=== PATIENT | male | born 1995 ===

== ENCOUNTER → 2023-07-17 11:15 | Outpatient (BNV) | payer OTHER, SELFPAY | PROVIDERS: Visit Provider Psychiatry & Neurology Psychiatry | DX: F33.2 Major depressive disorder, recurrent severe without psychotic features (principal); F43.10 Post-traumatic stress disorder, unspecified; F98.8 Other specified behavioral and emotional disorders with onset usually occurring in childhood and adolescence; F81.9 Developmental disorder of scholastic skills, unspecified; F41.1 Generalized anxiety disorder; F12.988 Cannabis use, unspecified with other cannabis-induced disorder | CPT/HCPCS: 90792; 99213; 99214 ==

== ENCOUNTER 2023-08-08 09:30 | Outpatient (RCR) | payer OTHER, SELFPAY ==
--- NOTE | 2023-07-17 09:19 | PC.NURSE ---
I called and left a message for Trudy Rico social media specialist at [facility] unit requesting a copy of the discharge paperwork with discharge summary and discharge medications. Awaiting call back.
[2023-07-17 11:54] VITALS: BP 123/85; PULSE 54; TEMP 36.6
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
--- NOTE | 2023-07-19 11:22 | HO.PHP ---
[facility] staff member followed up with Ryan who was expressing suicidal thoughts without a plan or intent. Ryan made a comment about feeling as though people don't care about him, even though they tell him they do and thoughts of what is the point. [facility] staff member explored with Ryan what is stopping him from acting on those thoughts. Ryan disclosed that he doesn't see the point in acting on those negative thoughts. [facility] staff member also encouraged Ryan to further review within the group setting what brought him to the program so he is able to get support from the group members. Ryan noted he does not see the point of processing the same things he has already discussed. Ryan presented as feeling hopeless. [facility] staff member explored with Ryan if he would like to get further evaluated for safety but he declined and stated that he has no plan or intent to act on anything. [facility] staff member was receptive and reviewed with Ryan the crisis numbers. Ryan did report if his thoughts develop into a plan he would access the crisis line or come to the hospital to get evaluated. Ryan was not presenting with any further concerns at this point and was able to return to group.
--- NOTE | 2023-07-19 16:22 | HO.PHP ---
At roughly 10:30 remote mortgage underwriter met with pt to assess for safety after stating in group he was trying to find the will to keep going . Pt reported he struggles with negative thoughts of hopelessness such as why bother , not one cares . Pt denied a plan to act on his hopeless thoughts. Stated he did not feel he needed to be assessed by crisis but would sit with [facility] staff further to discuss his safety. Pt continued to meet with [facility] staff, Cyndie while this remote mortgage underwriter exited. At roughly 1200 this remote mortgage underwriter met with Ryan again to go over his treatment plan. Pt needed prompting and motivational interviewing to help him explore his goals for PHP and post. Pt stated group settings have not been helpful in the past but stated he would stay and try. Pt acknowledged he has a hard time expressing his feelings. Pt was able to identify goal to find employment and to resume therapy post PHP. Pt was provided information for local respites, [facility] and [facility] as alternatives to the emergency room should he feel he needs higher level of care since pt expressed disinterest in returning inpatient, unhelpful . Pt stated he was safe and would return to groups today and return to [facility] tomorrow. Pt also agreed to check in with [facility] staff at any point during programming if his negative thoughts increased.
--- NOTE | 2023-07-20 16:18 | HO.PHP ---
Client's case has been opened and reviewed in teams.
--- NOTE | 2023-07-20 21:53 | HO.PHPPROGNO ---
Subjective Subjective Date of Service: 07/20/23 Reason For Visit: depression Interim History: Just feeling worse...more hopeless . Patient seen due to complaints of worsening depression. He endorses feelings of hopelessness at times, but says he would never harm himself, mostly on account of a friend (possibly exGF). He shares details about their long standing relationship which has been emotionally complicated. He says they continue to communicate with one another, but aren't currently together mostly because he suspects she thinks she will be a burden to me (on account of her own mental health struggles). He shares feeling like there is something very wrong deep inside (of me) , but admits he generally does not share these thoughts with others, and in general has been somewhat guarded in groups. Appetite and energy are low. Sleep is not great has difficulty falling asleep and also experiences frequent disruptions to sleep. Denies any issues with nightmares or waking with panic attacks but does carry anxiety/stress in his body he says. Denies any HI, AH, VH. Medication Compliance: Yes Side effects from medications: No Attending Groups: Yes Review of Systems Acute medical concerns: No Mental Status Exam Mental Status Exam Narrative: Alert, oriented, in no acute distress. Fair grooming. Casually dressed. Calm, cooperative, engaged. No psychomotor agitation or neurovegetative retardation. No tics or tremors noted over telehealth (Gait not assessed). Eye contact maintained. Mood depressed, affect constricted. Speech normal. Thought process linear, coherent, does not present as preoccupied or disorganized. Thought content related to present stressors, trauma sx, chronic low self esteem, transient hopelessness, but denies any current SI. Denies any aggressive ideation or HI. Denies any thoughts, impulse, intention or plan to harm self or others. No paranoia or delusional content elicited. Denies any AH or VH, no evidence of psychosis. Cognition grossly intact, mildly distractible but overall able to attend to discussion. Insight and judgment - fair but adequate. Assessment & Plan Assessment & Plan (1) Major depressive disorder, recurrent severe without psychotic features: Status: Acute Code(s): F33.2 - Major depressive disorder, recurrent severe without psychotic features Assessment and Plan: r/o Bipolar spectrum or other mood disorder (2) PTSD (post-traumatic stress disorder): Status: Acute Code(s): F43.10 - Post-traumatic stress disorder, unspecified (3) Other specified behavioral and emotional disorders with onset usually occurring in childhood and adolescence: Status: Acute Code(s): F98.8 - Other specified behavioral and emotional disorders with onset usually occurring in childhood and adolescence Assessment and Plan: likely Pervasive Developmental Disorder History of Learning Disorder and other unspecified scholastic disabilities History of Attention-Deficit Hyperactivity Disorder (ADHD) since childhood r/o other disorders of impulse control r/o spectrum disorder (4) Learning disabilities: Status: Acute Code(s): F81.9 - Developmental disorder of scholastic skills, unspecified (5) Other anxiety states: Status: Acute Code(s): F41.1 - Generalized anxiety disorder Assessment and Plan: Acute Stress Reaction (most recent), generalized anxiety, social anxiety, somatic sx/panic (6) Cannabis use, unspecified with other cannabis-induced disorder: Status: Acute Code(s): F12.988 - Cannabis use, unspecified with other cannabis-induced disorder Plan continue fluoxetine 30 mg qam start bupropion SR 100 mg qam may start prazosin 1 mg qam (check vitals) continue prazosin 1 mg qhs increase Seroquel to 100 mg qhs Routine lab work ordered UDS, EKG as indicated MassPat reviewed Continue to monitor as per protocol Patient educated on: diagnosis and medication risk/benefits Informed Consent: understands Certification I certify that partial hospital treatment is medically necessary due to the symptoms and problems resulting from the patient's mental illness and the failure to treat the patient at the partial hospital level of care would likely result in the patient requiring inpatient psychiatric care which could not be prevented at a less intensive level of care. Total time managing care of this patient today __30__ minutes. Discharge Plan Discharge Attending provider: Alejandra Arambula Additional Instructions: New PCP appointment with Dr Cristy Rosen. [address] [place] [address]. [address] on August at 1:00. Office Number [phone] Medications: New prazosin 1 mg capsule 1 - 2 mg PO BEDTIME PRN (Reason: sleep) Qty: 20 0RF fluoxetine 10 mg capsule 10 mg PO QAM Qty: 30 0RF quetiapine 25 mg tablet 25 mg PO BID PRN (Reason: sleep, agitation) Qty: 30 0RF bupropion HCl 100 mg tablet sustained-release 12 hr 100 mg PO QAM Qty: 20 0RF quetiapine [Seroquel] 50 mg tablet 50 mg PO BID Qty: 20 0RF quetiapine 100 mg tablet 100 - 150 mg PO BEDTIME Qty: 20 0RF Continued prazosin 2 mg Capsule 2 mg PO BEDTIME fluoxetine 20 mg Capsule 20 mg PO DAILY Qty: 30 0RF Rx Instructions: =DOSE INCREASE= Held quetiapine 50 mg Tablet 50 mg PO BEDTIME Hold Instructions: Resume on 07/24/23. patient trialing whether 37.5 mg dose is better tolerated Stand Alone Forms: Patient Portal Discharge page Print Language: Kinyarwanda
--- NOTE | 2023-07-25 13:52 | PC.NURSE ---
Addendum entered by Elizabeth Anderson RN 07/25/23 14:03: New PCP appointment with Dr Cristy Rosen. [address] [place] [address]. [address] on August at 1:00. Office Number [phone] Original Note: New PCP appointment with Dr Lola Muniz. [address] [place] [address]. [address] on August at 1:00. Office Number [phone]
--- NOTE | 2023-07-25 23:09 | P.PNPSP_ITS ---
Subjective Subjective Date of Service: 07/25/23 Reason For Visit: depression Interim History: Patient see for follow up. Stil preesnts with depressed/sullen affect but brightens at moments. He reports some improvement in his depressive symptoms, which are still there, but less intense . He rates his depression severity at a 4 out of 10, down from an 8 or 9 on admission. His anxiety severity at a 5 out of 10. Fluoxetine was increased to 30 mg on admission and Wellbutrin SR 100 mg was started last week. He denies any adverse effects. He reports not sleeping until 5am last night, so he only got 2 hours of sleep before coming to the program today. Aside from lasat night, he has been falling asleep around midnight and waking up q2-3 hours, which he says has been typical for him. He suggests last night he had a sugary drink from a [employer] restaurant and suspects this may have been an energy drink which kept him up. He is tired today, there are no other signs of overactivation or ifeanyi. However he says he is generally low energy and yet has struggled with sleep. He reports his sleep has imrpoved from a 4/10 on 50 mg of Seroquel to a 6/10 on 100 mg at night. We plan to increase his Seroquel to 150 mg with a 50 mg PRN, especially since we will be titrating the dose of Wellbutrin SR to 150 mg (which he should split into 100/50 mg in AM and lunch. He reports feeling less hopeless, denies SI, HI, AH, VH. ROS negative. Medication Compliance: Yes Side effects from medications: No Attending Groups: Yes Review of Systems Acute medical concerns: No Mental Status Exam Mental Status Exam Narrative: Alert, oriented, in no acute distress. Calm, cooperative, engaged. Eye contact maintained. Mood depressed, affect constricted. Speech normal. Thought process linear, coherent, does not present as preoccupied or disorganized. Thought content related to stressors, denies any hopelessness or SI. Denies any aggressive ideation or HI. No paranoia or delusional content elicited. Denies any AH or VH, no evidence of psychosis. Cognition grossly intact. Insight and judgment - fair but adequate. Assessment & Plan Assessment & Plan (1) Major depressive disorder, recurrent severe without psychotic features: Status: Acute Code(s): F33.2 - Major depressive disorder, recurrent severe without psychotic features Assessment and Plan: r/o Bipolar spectrum or other mood disorder (2) PTSD (post-traumatic stress disorder): Status: Acute Code(s): F43.10 - Post-traumatic stress disorder, unspecified (3) Other specified behavioral and emotional disorders with onset usually occurring in childhood and adolescence: Status: Acute Code(s): F98.8 - Other specified behavioral and emotional disorders with onset usually occurring in childhood and adolescence Assessment and Plan: likely Pervasive Developmental Disorder History of Learning Disorder and other unspecified scholastic disabilities History of Attention-Deficit Hyperactivity Disorder (ADHD) since childhood r/o other disorders of impulse control r/o spectrum disorder (4) Learning disabilities: Status: Acute Code(s): F81.9 - Developmental disorder of scholastic skills, unspecified (5) Other anxiety states: Status: Acute Code(s): F41.1 - Generalized anxiety disorder Assessment and Plan: Acute Stress Reaction (most recent), generalized anxiety, social anxiety, somatic sx/panic (6) Cannabis use, unspecified with other cannabis-induced disorder: Status: Acute Code(s): F12.988 - Cannabis use, unspecified with other cannabis-induced disorder Plan continue fluoxetine 30 mg qam increase bupropion SR to 150 mg (split 100/50 in AM/lunch) continue prazosin 1 mg BID increase Seroquel to 150 mg qhs, may take an additional 50 mg PRN Routine lab work ordered UDS, EKG as indicated MassPat reviewed Continue to monitor as per protocol Patient educated on: diagnosis and medication risk/benefits Informed Consent: understands Reason for contiued partial hosp. stay Substantial Risk for: inability to function and med/psych decompensation Certification I certify that partial hospital treatment is medically necessary due to the symp toms and problems resulting from the patient's mental illness and the failure to treat the patient at the partial hospital level of care would likely result in the patient requiring inpatient psychiatric care which could not be prevented at a less intensive level of care. Total time managing care of this patient today __30__ minutes. Discharge Plan Discharge Attending provider: Alejandra Arambula Additional Instructions: New PCP appointment with Dr Cristy Rosen. [address] [place] [address]. [address] on August at 1:00. Office Number [phone] Medications: New prazosin 1 mg capsule 1 - 2 mg PO BEDTIME PRN (Reason: sleep) Qty: 20 0RF fluoxetine 10 mg capsule 10 mg PO QAM Qty: 30 0RF quetiapine 25 mg tablet 25 mg PO BID PRN (Reason: sleep, agitation) Qty: 30 0RF bupropion HCl 100 mg tablet sustained-release 12 hr 100 mg PO QAM Qty: 20 0RF quetiapine [Seroquel] 50 mg tablet 50 mg PO BID Qty: 20 0RF quetiapine 100 mg tablet 100 - 150 mg PO BEDTIME Qty: 20 0RF Continued prazosin 2 mg Capsule 2 mg PO BEDTIME fluoxetine 20 mg Capsule 20 mg PO DAILY Qty: 30 0RF Rx Instructions: =DOSE INCREASE= Held quetiapine 50 mg Tablet 50 mg PO BEDTIME Hold Instructions: Resume on 07/24/23. patient trialing whether 37.5 mg dose is better tolerated Stand Alone Forms: Patient Portal Discharge page Print Language: Chadian
--- NOTE | 2023-07-26 12:16 | HO.PHP ---
[employer] and pt called [facility] in [facility] to reschedule a missed appt with his Med provider. Pt's new aftercare med provider appt was obtained with [facility], it is with Rj Marx on August 10 at 10 am, 1 [facility]. Pt next OP therapy appt is scheduled for August 01 with Myla through [facility].
[2023-07-31 13:44] VITALS: BP 133/78; PULSE 72
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
--- NOTE | 2023-08-01 10:04 | HO.PHP ---
[facility] staff member faxed over the referral for CSP services through [facility]. [facility] staff member is awaiting a phone call back with scheduled appointment dates and times.
--- NOTE | 2023-08-04 13:58 | HO.PHP ---
PHP Admin, Amanda, informed the group that Ryan will not be in attendance to program today. Ryan disclosed no safety concerns and informed Amanda he would be here on Monday.
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
--- NOTE | 2023-08-08 10:42 | HO.PHP ---
PHP staff member received an voice message from Isabel, through [facility], in which she provided the appointment dates and times for Ryan's next scheduled appointment is on August 11, 2023 at 10 AM with Adele Larsno at the [address] [place] [address] location in [place], [place]. .
--- NOTE | 2023-08-08 13:12 | HO.PHP ---
PHP staff member rescheduled Ryan's appointment time for CSP with Isabel through [facility] since he has a prior appointment scheduled for that date and time. The new appointment for CSP is on August 16, 2023 at 10 AM with Edmond Ruiz.
--- NOTE | 2023-08-08 21:40 | P.PNPSP_ITS ---
Subjective Subjective Date of Service: 08/08/23 Reason For Visit: depression Interim History: Patient seen for follow-up, anticipating discharge at the end of program.? It's going okay Reports no acute issues or concerns. Medication compliant, medications well-tolerated. Denies any adverse effects.? Reports his anxiety has been okay...better. it's getting easier to manage and communicate . He reports that he has not needed to take the lorazepam given that his anxiety symptoms are improving. He also shares that his mother had concerns about the lorazepam and expressed wish that patient not continue this medication which he agreed to. Patient reports that he flushed the remaining tablets of clonazepam down the toilet. Patient was counseled on appropriate ways to discard old or unused supply of medication, for future reference. Mood is stable.? Denies any hopelessness or SI. Denies thoughts of harming self or others at this time. Denies any aggressive ideation or HI. Denies any paranoia or AH or VH. Sleep, appetite, energy stable. Medication Compliance: Yes Side effects from medications: No Attending Groups: Yes Review of Systems Acute medical concerns: No Mental Status Exam Mental Status Exam Narrative: Alert, oriented, in no acute distress. Mood stable, affect variable, anxious, brighter, mood congruent. Speech normal. Thought process linear, coherent, more goal-directed. Thought content related to stressors, future-oriented, denies any hopelessness or SI. Denies any aggressive ideation or HI. No paranoia or delusional content elicited. Denies any AH or VH, no evidence of psychosis. Cognition grossly intact. Insight and judgment - fair but adequate. Assessment & Plan Assessment & Plan (1) Major depressive disorder, recurrent severe without psychotic features: Status: Acute Code(s): F33.2 - Major depressive disorder, recurrent severe without psychotic features (2) PTSD (post-traumatic stress disorder): Status: Acute Code(s): F43.10 - Post-traumatic stress disorder, unspecified (3) Other specified behavioral and emotional disorders with onset usually occurring in childhood and adolescence: Status: Acute Code(s): F98.8 - Other specified behavioral and emotional disorders with onset usually occurring in childhood and adolescence (4) Learning disabilities: Status: Acute Code(s): F81.9 - Developmental disorder of scholastic skills, unspecified (5) Other anxiety states: Status: Acute Code(s): F41.1 - Generalized anxiety disorder (6) Cannabis use, unspecified with other cannabis-induced disorder: Status: Acute Code(s): F12.988 - Cannabis use, unspecified with other cannabis-induced disorder Plan Discharge from [facility] Continue regular medications Wellbutrin SR 100 mg qam Prozac 40 mg qam Seroquel 150 mg qhs for sleep Refills sent to pharmacy Agrees to discontinue lorazepam from med list since he would not like to continue on this medication Will defer further medication management to outpatient provider *Safety plan reviewed *Discharge Diagnoses reviewed with patient, as well as treatment course, discharge plan (including medication regime, medication management, potential side effects) as well as treatment rationale were also revisited Discharge paperwork signed and given to patient, copy sent for scanning to chart Patient educated on: diagnosis, medication risk/benefits and substance abuse Informed Consent: understands Reason for contiued partial hosp. stay Substantial Risk for: stable for discharge Certification I certify that partial hospital treatment is medically necessary due to the symptoms and problems resulting from the patient's mental illness and the failure to treat the patient at the partial hospital level of care would likely result in the patient requiring inpatient psychiatric care which could not be prevented at a less intensive level of care. Total time managing care of this patient today __30__ minutes. Discharge Plan Discharge Attending provider: Alejandra Arambula Additional Instructions: New PCP appointment with Dr Cristy Rosen. [address] [place] [address]. [address] on August at 1:00. Office Number [phone] Ryan's next scheduled appointment for CSP is on August 16, 2023 at 10 AM with Edmond Ruiz at the [address] [place] [address] location in [place], [place]. [phone]. Medications: New bupropion HCl 100 mg tablet sustained-release 12 hr 100 mg PO QAM Qty: 20 0RF fluoxetine 40 mg capsule 40 mg PO QAM Qty: 30 0RF Continued prazosin 2 mg Capsule 2 mg PO BEDTIME Qty: 30 0RF Changed quetiapine 100 mg tablet 100 - 150 mg PO BEDTIME PRN (Reason: sleep, anxiety) Qty: 20 0RF Discontinued fluoxetine 20 mg Capsule 20 mg PO DAILY quetiapine 50 mg Tablet 50 mg PO BEDTIME Hold Instructions: Resume on 07/24/23. patient trialing whether 37.5 mg dose is better tolerated Stand Alone Forms: Patient Portal Discharge page Patient Education: Depression (DC) Print Language: Nepali
== END 2023-08-08 23:59 | disposition home or self-care (01) ==
LOC: HO.PHPA 09:30
PROVIDERS: Visit Provider Psychiatry & Neurology Psychiatry
DX: F33.2 Major depressive disorder, recurrent severe without psychotic features (principal); F43.10 Post-traumatic stress disorder, unspecified; F98.8 Other specified behavioral and emotional disorders with onset usually occurring in childhood and adolescence; F81.9 Developmental disorder of scholastic skills, unspecified; F41.1 Generalized anxiety disorder; F12.988 Cannabis use, unspecified with other cannabis-induced disorder; Z79.899 Other long term (current) drug therapy
CPT/HCPCS: 90791; 90853